=== PATIENT | female | born 1970 | race Caucasian/White ===

== ENCOUNTER 2017-04-15 16:09 | Emergency (ER) | payer OTHER ==
[~2017-04-15] VITALS: Ht 154.9 cm; Wt 72.6 kg
[2017-04-15 16:38] VITALS: Ht 154.9 cm; Wt 72.6 kg
[2017-04-15 20:27] VITALS: BP 136/79
== END 2017-04-15 20:27 | disposition home or self-care (01) ==
LOC: ED 16:09
DX: S82.65XA Nondisplaced fracture of lateral malleolus of left fibula, initial encounter for closed fracture (principal); Z90.49 Acquired absence of other specified parts of digestive tract; W01.0XXA Fall on same level from slipping, tripping and stumbling without subsequent striking against object, initial encounter; Y93.89 Activity, other specified; Y92.89 Other specified places as the place of occurrence of the external cause; Y99.8 Other external cause status
CPT/HCPCS: J1885; Q0092

== ENCOUNTER 2018-06-15 15:34 | Emergency (ER) | payer MEDICAID ==
[~2018-06-15] VITALS: Ht 154.9 cm; Wt 80.9 kg
[2018-06-15 15:47] VITALS: Ht 154.9 cm; Wt 80.9 kg
[2018-06-15 16:25] LABS: BASOPHIL % 0.7 % (0-2); PLATELET COUNT 323 x10^3mcL (130-400); RED CELL DISTRIBUTION WIDTH 14.5 % (11.5-14.5)
[2018-06-15 16:31] LABS: CALCIUM 8.4 mg/dL (8.5-10.1); CARBON DIOXIDE 24.3 mmol/L (21-32); CHLORIDE SERUM 105 mmol/L (98-107); CREATININE SERUM 0.8 mg/dL (0.6-1.0); GFR1 > 60 mL/min; GLUCOSE SERUM 108 mg/dL (74-106); POTASSIUM SERUM 3.1 mmol/L (3.5-5.1); SODIUM SERUM 142 mmol/L (136-145)
[2018-06-15 16:35] LABS: ALBUMIN 3.6 g/dL (3.4-5.0); ALKALINE PHOSPHATASE 104 U/L (46-116); ALT/SGPT 39 U/L (14-59); AST/SGOT 21 U/L (15-37); BILIRUBIN TOTAL 0.2 mg/dL (0.20-1.00); LIPASE 204 IU/L (73-393); TOTAL PROTEIN, SERUM 7.6 g/dL (6.4-8.2)
[2018-06-15 16:53] VITALS: BP 134/78
== END 2018-06-15 16:53 | disposition home or self-care (01) ==
LOC: ED 15:34
PROVIDERS: Emergency Medicine
DX: N94.6 Dysmenorrhea, unspecified (principal)
CPT/HCPCS: 36415

== ENCOUNTER 2019-12-29 19:19 | Emergency (ER) | payer OTHER ==
[~2019-12-29] VITALS: Ht 154.9 cm; Wt 81.2 kg
[2019-12-29 19:30] VITALS: Ht 154.9 cm; Wt 81.2 kg
[2019-12-29 22:08] VITALS: BP 112/70
== END 2019-12-29 22:08 | disposition home or self-care (01) ==
LOC: ED 19:19
DX: M54.42 Lumbago with sciatica, left side (principal); Z88.0 Allergy status to penicillin; Z98.890 Other specified postprocedural states
CPT/HCPCS: J1885